=== PATIENT | male | born 1950 | race Caucasian/White ===

== ENCOUNTER → 2019-09-12 11:02 | Outpatient (CLI) | payer MEDICARE, SELFPAY ==
[2019-09-12 13:17] LABS: Creatinine, Serum 1.07 mg/dL (0.70-1.30); EST Glomerular Filtration Rate 72 mL/min (>60); Est Glom Filt Rate - Afr Amer 88 mL/min (>60)
== END ==
PROVIDERS: PCP Family Medicine; Referring Provider Radiology Radiation Oncology; Visit Provider Radiology Radiation Oncology
DX: Z01.818 Encounter for other preprocedural examination (principal); Z85.46 Personal history of malignant neoplasm of prostate
CPT/HCPCS: 36415; 82565

== ENCOUNTER → 2019-09-18 13:42 | Outpatient (CLI) | payer MEDICARE, SELFPAY ==
--- NOTE | 2019-09-18 13:45 | CT_ITS ---
STUDY: CT ABDOMEN AND PELVIS WITH CONTRAST REASON FOR EXAM: Male, 69 years old. Rising PSA. Hx of prostate cancer with prostatectomy. Diabetes and HTN-rx controlled. RADIATION DOSAGE (If Supplied By Facility): CTDIvol = ( 23.24 ) mGy, DLP = ( 3388.73 ) mGycm TECHNIQUE: Transaxial images were obtained from the dome of the diaphragm to the symphysis pubis with oral contrast. Oral and amp; IV Readi-CAT and amp; 100mL Isovue-300 was administered. Sagittal and coronal images were reconstructed. Individualized dose optimization techniques were used for this CT. COMPARISON: None. FINDINGS: Mild degree of increased markings at the lung bases suggestive of mild scarring. The visualized portions of the heart are within normal limits. There is decreased attenuation of the liver consistent with steatosis. Normal gallbladder and extrahepatic biliary system. Normal spleen. Normal pancreas. Normal bilateral adrenal glands. There is a 3.6 cm x 4.3 cm cyst in the right parapelvic region. One centimeters cyst in the anterior lateral aspect of the right kidney. Normal left kidney. Normal visualized stomach. Normal small intestine. There are multiple colonic diverticula consistent with diverticulosis. The appendix is visualized and appears normal. There is scattered atherosclerotic calcification of the abdominal aorta, without a demonstrated aneurysm. Normal inferior vena cava. Normal retroperitoneum. Mild degree of gallbladder wall thickening although the bladder is not adequately distended. Status post prostatectomy. Normal abdominal wall. Degenerative changes of the sacroiliac joints bilaterally more prominent on the right side. CT/Abdomen/Pelvis WITH Contrast IMPRESSION: Mild degree of basilar scarring. Fatty infiltration of the liver. Sigmoid diverticulosis. Right renal cysts. Electronically Signed: Imtiaz Weiner, at 15:44 EDT , Service support ,
--- NOTE | 2019-09-18 13:46 | CT_ITS ---
STUDY: CT CHEST WITH CONTRAST REASON FOR EXAM: Male, 69 years old. Rising PSA. Hx of prostate cancer with prostatectomy. Diabetes and HTN-rx controlled. RADIATION DOSAGE (If Supplied By Facility): CTDIvol = ( 23.24 ) mGy, DLP = ( 3388.73 ) mGycm TECHNIQUE: Transaxial imaging was performed following intravenous administration of Oral and amp; IV Readi-CAT and amp; 100mL Isovue-300. Multiplanar coronal and sagittal images were reformatted. Individualized dose optimization techniques were used for this CT. COMPARISON: None. FINDINGS: Increased interstitial markings in the lung apices as well as at the lung bases suggestive of a scarring. Mild degree of subpleural blebs in the lower lobes. There is no demonstrated pleural abnormality. There are calcifications of the coronary arteries. Normal mediastinum. Normal hilar regions. Normal enhanced pulmonary arteries. Normal aorta arch and descending thoracic aorta. There are multi-level degenerative changes of the thoracic spine. There is no demonstrated abnormality of the visualized upper abdomen. CT/Chest WITH Contrast IMPRESSION: Mild degree of bilateral pulmonary scarring. Electronically Signed: Imtiaz Weiner, at 15:47 EDT , Service support ,
== END ==
PROVIDERS: PCP Family Medicine; Referring Provider Radiology Radiation Oncology; Visit Provider Radiology Radiation Oncology
DX: R97.20 Elevated prostate specific antigen [PSA] (principal); Z85.46 Personal history of malignant neoplasm of prostate
CPT/HCPCS: 71260; 74177; Q9967

== ENCOUNTER → 2019-09-25 08:52 | Outpatient (CLI) | payer MEDICARE, SELFPAY ==
--- NOTE | 2019-09-25 08:55 | NM_ITS ---
CLINICAL: 69-year-old male with reported history of carcinoma of the prostate with elevation of the serum PSA level. WHOLE BODY 99m Tc MDP RADIONUCLIDE BONE SCINTIGRAPHY COMPARISON: CT of the abdomen-pelvis 09/18/2019 FINDINGS: Following the intravenous administration of approximately 25.0 mCi of 99m Tc MDP, whole body bone images reveal: 1. Focal increased radiotracer distribution is defined in the right paramedian sacrum. 2. Increased radiopharmaceutical concentration is identified in the glenohumeral compartment of the left shoulder, acromioclavicular compartment of the right shoulder, sternoclavicular compartments of both shoulders, bilateral wrists, the left hand, knees bilaterally, mid cervical spine posteriorly on the left and right, fifth lumbar vertebra posteriorly on the left, right sacroiliac joint. 3. The remaining skeletal structures are scintigraphically unremarkable with normal-appearing renal images and urinary bladder activity identified. An increase in tracer uptake is noted in the left maxilla and right mandible most consistent with periodontal disease and/or periostitis. NM/Bone Scan Whole Body IMPRESSION: 1. The increase in radiopharmaceutical concentration identified in the bilateral shoulders, right-left wrist, both knees, cervical and lumbar spine, the right sacroiliac joint is most consistent with degenerative arthritis. 2. Facilitated uptake defined in the right paramedian sacrum demonstrates no corresponding radiographic change on review of CT of the abdomen pelvis dated 09/18/2019. Correlation with magnetic resonance imaging may be of benefit. 3. There is no definitive typical scintigraphic evidence of diffuse axial skeletal metastatic disease on the current examination. Electronically Signed: Lonny Merlos DO at 21:56 EDT Tel , Service support ,
== END ==
PROVIDERS: PCP Family Medicine; Referring Provider Radiology Radiation Oncology; Visit Provider Radiology Radiation Oncology
DX: R97.20 Elevated prostate specific antigen [PSA] (principal); Z85.46 Personal history of malignant neoplasm of prostate
CPT/HCPCS: 78306

== ENCOUNTER → 2020-06-15 06:38 | Outpatient (CLI) | payer MEDICARE, SELFPAY ==
[2020-06-05 10:52] VITALS: BMI 35.3
--- NOTE | 2020-06-15 13:37 | STRESSREP ---
Stress Test Report Pharmacologic myocardial perfusion stress test. 69-year-old male with a history of coronary artery disease, dyspnea on exertion. Medications lisinopril hydrochlorothiazide Metformin aspirin omeprazole atorvastatin. Stress protocol: Resting EKG demonstrates normal sinus rhythm with a rate of 75 bpm normal intervals are noted T wave inversion noted in lead III. Resting blood pressure is 118/82 mmHg. 0.4 mg of regadenoson was infused per usual protocol followed by rapid intravenous saline flush injection continuous EKG monitoring was performed. The maximum heart rate attained was 93 bpm which was 62% of max impacted heart rate the maximum workload was 1 metabolic equivalent. At rest there were no ST or T wave inversions noted to suggest resting ischemia. At peak infusion nonspecific ST changes were noted with did not meet the criteria for ischemia. No clinical angina was noted the test was terminated due to completion of the test. Myocardial perfusion protocol. 14.7 mCi of technetium 99m sestamibi was injected at rest. 0.4 mg of regadenoson was infused per usual protocol. At peak infusion 44.8 mCi of technetium 99m sestamibi was injected stress images were obtained stress and rest images were reconstructed and compared in the short axis vertical long horizontal long axis. Gated images were also obtained Perfusion SPECT analysis: Review of the stress images demonstrate normal uptake of tracer noted in all areas of the myocardium. The resting images also demonstrate normal uptake of tracer noted in all areas of myocardium. There is some GI attenuation artifact obscuring the inferior wall. No obvious ischemia is noted. No previous infarct is present. Gated SPECT analysis: The gated ejection fraction is 58%. Conclusion: Normal pharmacologic myocardial perfusion stress test. Preserved ejection fraction.
== END ==
PROVIDERS: PCP Family Medicine; Referring Provider Internal Medicine Cardiovascular Disease; Visit Provider Internal Medicine Cardiovascular Disease
DX: I25.10 Atherosclerotic heart disease of native coronary artery without angina pectoris (principal)
CPT/HCPCS: 78452; 93017; A9500; A4216; J2785

== ENCOUNTER → 2020-10-27 14:03 | Outpatient (CLI) | payer MEDICARE, SELFPAY ==
--- NOTE | 2020-10-27 13:30 | PET_ITS ---
EXAMINATION: 18F Fluciclovine PET/CT CLINICAL HISTORY: A 70-year-old male with history of carcinoma of the prostate presenting for restaging examination. COMPARISON EXAMINATION: Whole body bone scintigraphy study dated 09/25/19 PROCEDURE: The patient received an intravenous bolus injection of 11.09 mCi of Axumin (fluciclovine F-18) via the right hand, on the imaging table with the patient in the supine position followed by an intravenous normal saline flush. The patient in the supine position with arms above the head, CT scan for attenuation correction was performed immediately following the bolus injection and left up for 1-2 minutes. The PET scan acquisition was begun within 3-5 minutes following injection from mid thigh to the base of the skull. The total scan time was registered between 20-30 minutes. Axumin (fluciclovine F-18) injection is indicated for positron emission tomography PET imaging in men with suspected prostate cancer recurrence based on elevation of the serum prostatic surface antigen (PSA) levels following prior treatment intervention. FINDINGS: Head/Neck: There is no evidence of abnormal radiopharmaceutical concentration on review of the cranial vault. Symmetric tracer uptake is observed in the bilateral parotid and submandibular glands. CHEST: Physiologic radiopharmaceutical concentration is observed in the left ventricular myocardium. There is no evidence of abnormal increased tracer uptake within the context of the right-left hemithorax pulmonary parenchyma, mediastinal structures and bilateral thoracic perihilum. Pertinent chest CT findings are as follows. There are no parenchymal densities-nodules defined in the right and left hemithorax with discernible increased radiopharmaceutical concentration. Ground glass changes noted in the right upper posterolateral lung field are ametabolic. There is atherosclerotic calcification defined in the thoracic aorta without evidence of dilatation-aneurysm formation. Coronary arterial calcification is observed. Mediastinal and bilateral axillary soft tissue reveals no evidence of increased tracer uptake. Abdomen/Pelvis: Physiologic tracer concentration is observed in the pancreatic head-tail, right and left kidneys, urinary bladder, intestinal tract, hepatic and splenic parenchyma. The CT of the abdomen and pelvis demonstrates the following anatomic characteristics. Atherosclerotic calcification is demonstrated in the abdominal aorta without evidence of aneurysm. Pelvic arterial calcification is defined. Peripelvic cyst formation is visualized in the right kidney. Colonic diverticulosis is encountered without evidence of diverticulitis. Bilateral inguinal soft tissue densities with fatty hilus demonstrate no evidence of increased tracer uptake. The prostate gland appears surgically absent. Skeletal: Degenerative changes are noted in the cervical, thoracic and lumbar spine without evidence of increased radiopharmaceutical concentration. There is no evidence of sclerotic, mixed sclerotic-lytic and/or lytic changes noted on review of the skeletal structures manifesting an increase in glucose metabolism. PET/PET/CT Tumor Base -Thigh Subs IMPRESSION: 1. NEGATIVE EXAMINATION. There is no definitive quantitative scintigraphic evidence of 18F fluciclovine avid /viable neoplastic disease. (Rafael et al, Journal of Nuclear Medicine 55:1986, 2014). Electronic Signature Lonny Merlos D.O. Electronically Signed: Lonny Merlos DO at 9:37 EDT Tel , Service support ,
== END ==
PROVIDERS: PCP Family Medicine; Referring Provider Radiology Radiation Oncology; Visit Provider Radiology Radiation Oncology
DX: C61 Malignant neoplasm of prostate (principal); R97.20 Elevated prostate specific antigen [PSA]
CPT/HCPCS: 78815; A9588

== ENCOUNTER → 2023-12-11 | Outpatient (CLI) | payer MEDICARE, SELFPAY ==
--- NOTE | 2023-12-11 06:54 | ECHOCS_ITS ---
Version 2 Reason For Study: Dyspnea/SOB Procedure This was a 2D Doppler, Color Flow transthoracic echocardiogram. The study was technically difficult. Contrast injection was performed. Exam performed in department. Left Ventricle Normal LV size. Moderate concentric left ventricular hypertrophy. Left ventricular systolic function is normal. Stage 1 diastolic dysfunction. The left ventricular ejection fraction is 60 %. No regional wall motion abnormalities noted. Right Ventricle Normal RV size. Normal systolic function. Tricuspid Valve Normal tricuspid valve. Mild tricuspid valve insufficiency. Pulmonary artery systolic pressure is 31 mmHg. Aortic Valve Trisinus/trileaflet aortic valve. Moderate focal aortic valve calcification. Peak aortic valve gradient 49 mmHg. Mean aortic valve gradient 26 mmHg. Moderate aortic stenosis. Pulmonic Valve The pulmonic valve is not well visualized. Great Vessels Normal aortic root. The pulmonary artery is normal size. Normal inferior vena cava. Pericardium/Pleural No pericardial effusion. Medication 22 gauge I.V. with prn adaptor inserted into right arm. Diluted definity 3.5ml given slow IV push to enhance endocardial definition. MMode/2D Measurements & Calculations LVIDd: 4.6 cm IVSd: 1.5 cm LVOT diam: 2.0 cm LVIDs: 3.8 cm LVPWd: 1.3 cm LVOT area: 3.3 cm2 RVDd: 4.2 cm FS: 17.3 % Ao root diam: 3.6 cm asc Aorta Diam: 3.3 cm LAV(MOD-sp2): 87.1 ml LA dimension: 4.8 cm Ao sinus diam: 3.[address] Junction: 3.0 cm TAPSE: 2.3 cm Time Measurements MV dec time: 0.17 sec Doppler Measurements & Calculations MV E max boby: 68.2 cm/sec Lat Peak E' Boby: 13.7 cm/sec Med Peak E' Boby: 10.2 cm/sec MV A max boby: 81.2 cm/sec E/E' lat: 5.0 E/E' med: 6.7 MV E/A: 0.84 MV V2 max: 88.4 cm/sec MV P1/2t max boby: 81.5 cm/sec Ao V2 max: 349.9 cm/sec MV max P.1 mmHg MV P1/2t: 73.6 msec Ao max P.1 mmHg MV V2 mean: 52.0 cm/sec MV dec slope: 324.2 cm/sec2 Ao V2 mean: 240.8 cm/sec MV mean P.3 mmHg Ao mean P.7 mmHg MV V2 VTI: 26.9 cm MVA(P1/2t): 3.0 cm2 Ao V2 VTI: 77.0 cm MVA(VTI): 3.0 cm2 AV (velocity ratio): 0.32 GERSON(I,D): 1.0 cm2 GERSON(V,D): 0.99 cm2 LV V1 max: 105.4 cm/sec SV(LVOT): 80.7 ml PA V2 max: 116.2 cm/sec LV V1 max P.5 mmHg PA max PG (full): 2.7 mmHg LV V1 mean P.6 mmHg LV V1 mean: 74.8 cm/sec LV V1 VTI: 24.6 cm TR max boby: 264.9 cm/sec TR max P.1 mmHg ECHO/Echo Complete W/ Contrast Interpretation Summary Normal LV size. Moderate concentric left ventricular hypertrophy. Stage 1 diastolic dysfunction. The left ventricular ejection fraction is 60 %. Moderate focal aortic valve calcification. Mean aortic valve gradient 26 mmHg. Moderate aortic stenosis. Contrast injection was performed. Ordering Physician: Hieu Medrano Referring Physician: Hieu Medrano Performed By: Sundeep León and Student
--- NOTE | 2023-12-11 14:29 | STRESSREP ---
Stress Test Report Pharmacologic myocardial perfusion stress test. 73-year-old man with a history of aortic stenosis and chest pain Resting EKG demonstrates sinus rhythm with a rate of 65 bpm. Resting blood pressure is 130/72 mmHg. 0.4 mg of regadenoson was infused per usual protocol followed by rapid intravenous saline flush injection. Continuous EKG monitoring was performed. The maximum heart rate was 90 bpm which was 62% of max impacted heart rate the maximum workload was 1 metabolic equivalent. At rest there were no ST or T wave changes noted to suggest ischemia and at peak infusion nonspecific ST changes were noted which did not meet the criteria for ischemia. No clinical angina is noted. The final blood pressure was 130/72 mmHg. Myocardial perfusion protocol. 14.7 mCi of technetium 99m sestamibi was injected at rest. 0.4 mg of regadenoson was infused per usual protocol. At peak infusion 44.6 mCi of technetium 99m sestamibi was injected stress images were obtained stress and rest images were reconstructed and compared in the short axis vertical long and horizontal long axis. Gated images were also obtained. Perfusion SPECT analysis: Review of the stress images demonstrate normal uptake of tracer noted in all areas of the myocardium. The resting images similar demonstrated normal uptake of tracer noted in all areas of the myocardium. No areas of reversibility are noted to suggest ischemia and no previous infarct is noted. Gated SPECT analysis: The gated ejection fraction is 57%. Conclusion: Normal pharmacologic myocardial perfusion stress test. Preserved ejection fraction.
[2023-12-12 11:06] LABS: Bedside Glucose 140 mg/dL (74-106)
== END | disposition home or self-care (01) ==
LOC: CVS 06:54
PROVIDERS: PCP Internal Medicine; Referring Provider Nurse Practitioner Family; Visit Provider Nurse Practitioner Family
DX: R06.09 Other forms of dyspnea (principal); C61 Malignant neoplasm of prostate; R07.9 Chest pain, unspecified; I25.10 Atherosclerotic heart disease of native coronary artery without angina pectoris; I35.0 Nonrheumatic aortic (valve) stenosis; I10 Essential (primary) hypertension; E78.5 Hyperlipidemia, unspecified
CPT/HCPCS: 78452; 82962; 93017; 93306; A9500; Q9957; A4216; C8929; J2785